=== PATIENT | female | born 1970 | race Hispanic/Latino ===

== ENCOUNTER 2017-09-05 10:25 | Emergency (ER) | payer OTHER ==
[~2017-09-05] VITALS: Ht 154.9 cm; Wt 81.8 kg
[~2017-09-05 10:25] MED LIST: AUGMENTIN875 MG OR; ROBITUSSIN AC10 ML OR
[2017-09-05] MEDS ORDERED: DIABETES (10:37)
[2017-09-05] MEDS ORDERED: THYROID MEDICATION (10:38)
[2017-09-05] MEDS ORDERED: MOTRIN400 MG PO (12:18)
[2017-09-05 12:28] VITALS: BP 140/82
== END 2017-09-05 12:35 | disposition home or self-care (01) | DRG 552 ==
LOC: ED 10:25
DX: M54.5 Low back pain (principal); S39.012A Strain of muscle, fascia and tendon of lower back, initial encounter; W01.0XXA Fall on same level from slipping, tripping and stumbling without subsequent striking against object, initial encounter; Y93.89 Activity, other specified; Y92.89 Other specified places as the place of occurrence of the external cause

== ENCOUNTER 2020-01-18 21:54 | Emergency (ER) | payer OTHER ==
[~2020-01-18] VITALS: Ht 154.9 cm; Wt 86.0 kg
[~2020-01-18 21:54] MED LIST changes: +DIABETES; +MOTRIN400 MG PO; +THYROID MEDICATION
[2020-01-18] MEDS ORDERED: CHOLESTEROL PO (22:31)
[2020-01-19 00:10] VITALS: BP 116/55
[2020-01-19] MEDS ORDERED: MOTRIN400 MG/TAB PO (00:17)
== END 2020-01-19 00:26 | disposition home or self-care (01) | DRG 552 ==
LOC: ED 21:54
DX: S16.1XXA Strain of muscle, fascia and tendon at neck level, initial encounter (principal); E11.9 Type 2 diabetes mellitus without complications; E03.9 Hypothyroidism, unspecified; W31.9XXA Contact with unspecified machinery, initial encounter; Y92.89 Other specified places as the place of occurrence of the external cause; Y99.0 Civilian activity done for income or pay

== ENCOUNTER 2021-05-30 13:29 | Emergency (ER) | payer SELFPAY ==
[~2021-05-30] VITALS: Ht 154.9 cm; Wt 77.3 kg
[2021-05-30] VITALS (9 sets, daily range): BP systolic 74–169; BP diastolic 49–126
[~2021-05-30 13:29] MED LIST changes: +CHOLESTEROL PO; +MOTRIN400 MG/TAB PO
[2021-05-30 14:13] LABS: URINE BILIRUBIN - DIPSTICK NEGATIVE (NEGATIVE); URINE BLOOD DIPSTICK MODERATE (NEGATIVE); URINE COLOR YELLOW; URINE GLUCOSE - DIPSTICK >=1000 mg/dL (NEGATIVE); URINE KETONE NEGATIVE (NEGATIVE); URINE LEUK ESTERASE NEGATIVE (NEGATIVE); URINE PH 6.5 (4.5-8.0); URINE PROTEIN - DIPSTICK NEGATIVE (NEG-TRACE); URINE SPECIFIC GRAVITY 1.015; URINE UROBILINOGEN - DIPSTICK 0.2 E.U./dL (0.2)
[2021-05-30 14:14] LABS: IMMATURE GRANULOCYTES 0.1 % (0.0-5.0); MEAN CELL VOLUME 88.2 fL CALC (80.0-100.0); MEAN CORPUSCULAR HGB 29.4 pG CALC (26.0-32.0); MEAN CORPUSCULAR HGB CONC 33.3 g/dL CAL (32.0-36.0); NEUT# 3.9 thou/uL (2.00-7.15); RED BLOOD COUNT 4.76 mill/uL (4.20-5.60); RED CELL DISTRI WIDTH 12.1 % (11.5-15.5)
[2021-05-30 14:14] LABS: URINE NITRITE - DIPSTICK NEGATIVE (Negative)
[2021-05-30 14:23] LABS: URINE SQUAMOUS EPITHELIAL CELL FEW EPI/hpf (0-FEW); URINE WBC 0-2 WBC/hpf (0-5)
[2021-05-30 14:31] LABS: ALBUMIN 4.2 g/dL (3.2-5.0); ALKALINE PHOSPHATASE 125 u/l (38-126); AMYLASE 78 u/l (30-110); BUN 15 mg/dL (7-17); BUN/CREATININE RATIO 30 (12-20 (CALC)); CHLORIDE 100 mmol/l (95-108); CREATININE 0.5 mg/dL (0.5-1.0); GFR > 60 ML/MIN (>=60 (CALC)); GFR FOR AFR.AMER. > 60 ML/MIN (>=60 (CALC)); LIPASE 52 u/l (23-300); POTASSIUM 3.8 mmol/l (3.5-5.1); SGOT/AST 21 u/l (14-36); SODIUM 137 mmol/l (137-146); TOTAL PROTEIN 7.7 g/dL (6.3-8.2)
[2021-05-30 14:36] LABS: ANION GAP 12 (6-22 (CALC)); BILIRUBIN, TOTAL 0.5 mg/dL (0.0-1.4); CARBON DIOXIDE 29 mmol/l (22-30)
[2021-05-30 14:49] LABS: ACT PARTIAL THROMBO TIME 25.1 SECONDS (20.0-32.5); INTERNATIONAL NORMALIZED RATIO 0.9 RATIO (0.7-1.3); PROTHROMBIN TIME 9.9 SECONDS (9.0-12.5)
[2021-05-30] MEDS ORDERED: PROTONIX40 MG PO (15:49)
[2021-05-30] MEDS ORDERED: HYDROCO/APAP1 TA9 PO (15:49)
[2021-05-30] MEDS ORDERED: ZOFRAN4 MG/TAB PO (15:49)
--- NOTE | 2021-06-02 16:37 | NUR ---
PRELIMINARY BLOOD CULTURE RESULTS CALLED TO . / VIALS GROWING GRAM (+) COCCI. NO NEW ORDERS
== END 2021-05-30 16:15 | disposition home or self-care (01) | DRG 694 ==
LOC: ED 13:29
DX: N13.30 Unspecified hydronephrosis (principal); R31.29 Other microscopic hematuria; K29.80 Duodenitis without bleeding; E11.65 Type 2 diabetes mellitus with hyperglycemia; E03.9 Hypothyroidism, unspecified; E78.00 Pure hypercholesterolemia, unspecified; Z91.14 Patient's other noncompliance with medication regimen
CPT/HCPCS: Q9967; S0164